=== PATIENT | female | born 1980 | race American Indian/Alaskan Native ===

== ENCOUNTER 2017-08-08 08:10 | Outpatient (CLI) | payer BC ==
--- NOTE | 2017-08-08 09:12 | Fluoroscopy Report ---
Upper GI study with thin barium: History: Functional dyspepsia. Findings: The esophagus and stomach and duodenum there is no extrinsic or intrinsic filling defects or ulceration. No extravasation of contrast. There is distal esophageal spasm noted at the gastroesophageal junction causing delayed emptying of the esophagus with moderate reflux. Impression: There is distal esophageal spasm with moderate reflux. Stomach and duodenum reveals no evidence of obstruction or contrast extravasation of contrast.
== END 2017-08-08 08:11 | disposition home or self-care (01) ==
LOC: FLUORO 08:10
PROVIDERS: ATTEND Specialist
DX: K30 Functional dyspepsia (principal); K21.9 Gastro-esophageal reflux disease without esophagitis
CPT/HCPCS: 74247